=== PATIENT | female | born 1975 | race Two or more races ===

== ENCOUNTER 2020-05-30 17:36 | Emergency (ER) | payer MEDICAID ==
[~2020-05-30] VITALS: Ht 160 cm; Wt 81.8 kg
[2020-05-30] MEDS ORDERED: ALBU18HF2 IH (19:01)
[2020-05-30 19:17] VITALS: BP 137/76
== END 2020-05-30 19:22 | disposition home or self-care (01) ==
LOC: ER 17:37
DX: R05 Cough (principal); R07.89 Other chest pain; R06.02 Shortness of breath; Z86.16 Personal history of COVID-19; Z79.899 Other long term (current) drug therapy
CPT/HCPCS: 71045; 93005; 99283